=== PATIENT | male | born 1950 | race Caucasian/White ===

== ENCOUNTER 2024-06-21 07:57 | Emergency (ER) | payer OTHER, SELFPAY ==
[2024-06-21 07:58] VITALS: BP 154/87
[2024-06-21 08:19] VITALS: BP 130/88
[2024-06-21] MEDS: NSS 1000 IV (08:25)
--- NOTE | 2024-06-21 08:25 | ED.GENMED ---
History of Present Illness
General
Chief Complaint: Cold/Flu/URI Symptoms
Source: patient
Exam Limitations: none
Time Seen by Provider: 06/21/24 08:03
History of Present Illness
History of Present Illness:
See MDM
Past History
Past History
ED Past Medical History: Cancer (Prostate)
ED Past Surgical History: Appendectomy and Urological
Social History
Tobacco: Non-smoker
Phy Exam
Physical Exam
Physical Exam:
See MDM
Course
Orders/Labs/Results
Orders:
Orders
06/21/24 08:11
CT Abd/pel W Iv And Oral Contr Urgent
Comment:
Reason For Exam: abd pain, dark color urine, discomfort with eating
CT Head W/o Iv Contrast Urgent
Comment:
Reason For Exam: persistent headache
0.9% Sodium Chloride 1000 ml [Nss] 1,000 ml IV BOLUS
Iohexol [Omnipaque] See Protocol PO NOW STA
06/21/24 08:16
CR Chest - 2 Views Urgent
Comment:
Reason For Exam: cough
06/21/24 08:25
COVID-19 Antigen Urgent
Source: Nasal Swab
CPK [Creatine Phosphokinase] Urgent
Complete Blood Count/With Diff Urgent
Comprehensive Metabolic Panel Urgent
Lactic Acid Q4H
Comment: CANCEL 2nd LACTIC ACID IF 1st LACTIC ACID IS LESS THAN 2
Lipase Urgent
Magnesium Urgent
Monotest Urgent
PTT Urgent
Prothrombin Time Urgent
Troponin I Urgent
Urinalysis Reflex To Culture Urgent
Date Specimen was Collected: 06/21/24
Time Specimen was Collected: 08:17
Urine Microscopic Reflex Cult Urgent
Influenza A+B Rapid Molecular Urgent
TANVIR Source: Nasal Swab
Specimen Description:
06/21/24 08:35
Benzonatate [Tessalon Perles] 100 mg PO ONCE ONE
06/21/24 10:08
Amoxicillin 875 mg/Clav 125 mg [Augmentin 875 mg/125 mg] 1 tablet PO NOW STA
Doxycycline [Vibramycin] 100 mg PO NOW STA
06/21/24 10:10
Ondansetron Injectable [Zofran] 4 mg IV NOW STA
Abnormal Lab Results
06/21/24
08:25
RBC 4.68 L 10^6/uL
(4.70-6.10)
Absolute Neuts (auto) 6.7 H 10^3/uL
(1.4-6.5)
Absolute Monos (auto) 1.1 H 10^3/uL
(0.1-0.6)
Lymphocytes % 14.5 L %
(20.5-51.1)
Monocytes % 11.3 H %
(1.7-9.3)
Sodium 134 L mmol/L
(135-145)
Chloride 95 L mmol/L
(98-107)
BUN 8 L mg/dl
(9-20)
Creatine Kinase 246 H U/L
(55-170)
Ur Occult Blood Reflex 1+ A
(Negative)
Urine RBC 3-6 A /HPF
(0-2)
Urine Albumin (Reflex) 1+ A
(Neg - Trace)
06/21/24 08:25
06/21/24 08:25
Vital Signs
Initial and Last Documented VS:
Initial Vital Signs
Temp Pulse Resp BP Pulse Ox
98.0 F 68 20 154/87 96
06/21/24 07:58 06/21/24 07:58 06/21/24 07:58 06/21/24 07:58 06/21/24 07:58
Last Documented Vital Signs
Temp Pulse Resp BP Pulse Ox
98.0 F 63 24 123/81 92
06/21/24 07:58 06/21/24 11:15 06/21/24 11:15 06/21/24 11:00 06/21/24 11:15
MDM/Problems Addressed
Differential Diagnosis Includes:
HPI and MDM Narrative:
74-year-old male presenting for evaluation of headache, flulike symptoms, poor appetite and dark-colored urine. He did receive IV fluids a few days ago but the urine has not improved. Patient does admit that he has early satiety and has decreased
appetite. Patient states his headache is somewhat improved with Excedrin but has been somewhat persistent. There is associated mild myalgias. Patient did have diarrhea but denies black or red stool.
On exam, patient is well-appearing nontoxic. Given the dark stools, will start IV fluids but obtain LFTs and CPK. Will obtain CT abdomen/pelvis given the ongoing symptoms. Given the cough, will obtain chest x-ray and viral testing.
Physical exam
General: Well appearing and non-toxic
HEENT: protecting airway. Mildly dry mucous membranes. Posterior pharynx clear
Neck: appears supple
CV: No evidence of cyanosis. Regular rate and rhythm
Resp: No accessory muscle use. Lungs clear
Abd: Non-distended. No significant tenderness
Extremities: No deformities
Neuro: alert
Psych: Normal affect
Skin: Intact
Problems Addressed including Acute and Chronic Conditions affecting care:
1. Dark-colored urine
Acuity: acute
Prognosis: stable
Details: Will obtain urinalysis and start IV fluid
2. Abdominal discomfort
Acuity: acute
Prognosis: stable
Details: Will obtain CT
3. Headache
Acuity: acute
Prognosis: stable
Details: Will obtain CT
4. Cough
Acuity: acute
Prognosis: stable
Details: Will obtain viral testing and chest x-ray
Updates
Patient found to have pneumonia on chest x-ray. Patient started on Augmentin and doxycycline. CPK only mildly elevated but patient already given fluids.
CT does show evidence of likely benign pancreatic cyst. Discussed the importance of outpatient MRI to further evaluate this
Differential Diagnosis (but not limited to): Kidney stone, cholecystitis, pancreatitis, dehydration
Testing considered: Blood cultures
Drug therapy (if applicable): OTC meds, please see d/c instruction regarding Rx drugs
Amount and/or Complexity of Data Reviewed
Clinical info obtained from: Patient
External data reviewed: N/A
Labs I independently reviewed (but not limited to): CPK mildly elevated
Radiology: X-ray independently reviewed: Chest x-ray consistent with left lower lobe pneumonia
The CT scan was personally and independently reviewed. In addition, official CT report reviewed.
Pulse Ox: not hypoxic
EKG independently reviewed: N/A
Machine Design Checker: N/A
Critical Care: N/A
Risk of Complication:
Social Determinants of health: Good social support
Discussed with other providers: N/A
Escalation of Care includes Admit/Obs: After being observed in the Emergency Department, pt stable for discharge.
Occasional wrong word or 'sound a like' substitutions may have occurred due to the inherent limitations of voice recognition software. Read the chart carefully and recognize, using context, where substitutions have occurred.
*Critical Care Note
Total Time (30-74mins, 75-104mins- exclusive of procedures): Not Applicable
ED Attending Note
-
Portions of this chart may have been created with voice recognition software.� Occasional wrong word or��sound alike� substitutions may have occurred due to the inherent limitations of voice recognition software.
Discharge Plan
Departure
Patient Disposition: Home (Routine Discharge)
Date of Disposition: 06/21/24
Time of Disposition: 11:56
Patient with high blood pressure during this ER visit?: No
Discharge Problem:
PNA (pneumonia)
Prescriptions:
New
doxycycline hyclate 100 mg capsule
100 mg PO BID Qty: 14 0RF
ondansetron 4 mg Tablet,Disintegrating
4 mg PO BIDPRN PRN (Reason: nausea/vomiting) Qty: 10 0RF
amoxicillin-pot clavulanate 875-125 mg tablet
1 tab PO BID Qty: 14 0RF
Referrals:
Janay Urias, DO [Family Provider] -
Activity Restrictions/Additional Instructions:
Please return for any worsening symptoms.
You may return at any time if you have further concerns.
Please talk to your primary care doctor about the incidental finding on the CT scan. The radiologist recommended an outpatient MRI to further evaluate the lesion in your pancreas was read as a likely small benign cyst.
Interventions
Interventions:
*Risk Screen - Suicide Last Done: 06/21/24 08:01
*General Assessment Last Done: 06/21/24 08:01
*Neglect/Abuse Screening Last Done: 06/21/24 08:01
ED- Fall Risk Assessment Last Done: 06/21/24 09:09
*ED COVID-19 Vaccine History Last Done: 06/21/24 08:01
ED- Pulmonary Assessment Last Done: 06/21/24 09:09
Discharge Date and Time
Print Language: [id number]
[2024-06-21] MEDS: OMNIPAQUE 50 ML PO (08:31)
[2024-06-21] MEDS: TESSALON PERLES 100 MG PO (08:36)
[2024-06-21 08:50] LABS: % Basophils 0.4 % (0-2); % Eosinophils 1.6 % (0-6); % Immature Granulocytes 0.3 % (0-0.5); % Lymphocytes 14.5 % (20.5-51.1); % Monocytes 11.3 % (1.7-9.3); % Neutrophils 71.9 % (42.2-75.2); Absolute Eosinophils 0.2 10^3/uL (0-0.7); Absolute Lymphocytes 1.4 10^3/uL (1.2-3.4); Absolute Monocytes 1.1 10^3/uL (0.1-0.6); Absolute Neutrophils 6.7 10^3/uL (1.4-6.5); Hematocrit 40.5 % (39.0-52.0); Hemoglobin 13.9 g/dL (13.0-18.0); Mean Corp Hgb Conc. 34.3 g/dL (33.0-37.0); Mean Corpuscular Hgb 29.7 pg (27.0-31.0); Mean Corpuscular Volume 86.5 fL (80.0-94.0); Mean Platelet Volume 9.8 fL (7.4-10.4); Nucleated Red Blood Cells % 0 % (-); Platelet Count 283 10^3/uL (130-400); Red Blood Cell Count 4.68 10^6/uL (4.70-6.10); Red Cell Dist. Width 12.6 % (11.5-14.5); White Blood Cell Count 9.3 10^3/uL (4.8-10.8)
[2024-06-21 08:58] LABS: INR 0.97; PT 13.4 Sec (11.4-14.6)
[2024-06-21 08:59] LABS: APTT 28.3 Sec (23.4-35.0)
[2024-06-21 09:00] VITALS: BP 147/88
[2024-06-21 09:00] LABS: Urine Albumin 1+ (Neg - Trace); Urine Bilirubin Negative (Negative); Urine Character Clear (Clear); Urine Color Yellow; Urine Glucose Negative (Negative); Urine Ketone Negative (Negative); Urine Leukocyte Negative (Negative); Urine Nitrite Negative (Negative); Urine Occult Blood 1+ (Negative); Urine Urobilinogen Negative (Neg - 1+)
[2024-06-21 09:09] VITALS: BMI 24.4
[2024-06-21 09:12] LABS: ALT (SGPT) 26 U/L (0-50); AST (SGOT) 34 U/L (17-59); Albumin 4.4 g/dl (3.5-5.0); Alkaline Phosphatase 66 U/L (38-126); Blood Urea Nitrogen 8 mg/dl (9-20); Calcium 8.7 mg/dl (8.4-10.2); Carbon Dioxide 29 mmol/L (22-30); Chloride 95 mmol/L (98-107); Estimated Creatinine Clearance 93 ml/min; Glucose 99 mg/dl (70-99); Magnesium 2.3 mg/dl (1.6-2.3); Potassium 3.8 mmol/L (3.5-5.1); Sodium 134 mmol/L (135-145); Total Bilirubin 1.2 mg/dl (0.2-1.3); Total Protein 7.2 g/dl (6.3-8.2); eGFR > 60.00
[2024-06-21 09:20] LABS: COVID-19 Antigen Negative (Negative); Urine White Cell 0-2 /HPF (0-5)
[2024-06-21 09:22] LABS: Troponin I < 0.012 ng/ml
[2024-06-21 09:50] LABS: Creatine Phosphokinase 246 U/L (55-170); Lipase 97 U/L (23-300)
[2024-06-21 10:00] VITALS: BP 126/85
[2024-06-21] MEDS: VIBRAMYCIN 100 MG PO (10:15)
[2024-06-21] MEDS: ZOFRAN 4 MG IV (10:15)
[2024-06-21] MEDS: AUGMENTIN 875 MG/125 MG 1 TABLET PO (10:15)
[2024-06-21 11:00] VITALS: BP 123/81
[2024-06-21 11:16] LABS: Monotest Negative (Negative)
== END 2024-06-21 12:13 | disposition home or self-care (01) ==
LOC: EMR 07:57
PROVIDERS: EMERGENCY PHYSICIAN Student in an Organized Health Care Education/Training Program; FAMILY PHYSICIAN Internal Medicine
DX: J18.9 Pneumonia, unspecified organism (principal); Z85.46 Personal history of malignant neoplasm of prostate; Z90.79 Acquired absence of other genital organ(s); Z90.49 Acquired absence of other specified parts of digestive tract
CPT/HCPCS: 99284; 96374; 96361; 70450; 71046; 74177; 80053; 81003; 81015; 82550; 83605; 83690; 83735; 84484; 85025; 85610; 85730; 86308; 87502; 87811; Q9967